=== PATIENT | female | born 1990 | race Caucasian/White ===

== ENCOUNTER 2017-01-08 07:47 | Emergency (ER) | payer OTHER ==
[~2017-01-08] VITALS: Ht 157.5 cm; Wt 97.5 kg
[~2017-01-08 07:47] MED LIST: PANT40TA5 PO
[2017-01-08 09:00] VITALS: BP 126/87
[2017-01-08] MEDS ORDERED: ONDA4TAB10 SL (09:21)
[2017-01-08] MEDS ORDERED: SULF1TAB24 PO (09:21)
--- NOTE | 2017-01-08 09:22 | PHYS DOC ---
Past Medical History Past Medical History: No Pertinent History Past Surgical History: Other Additional Past Surgical Histo: GASTRIC SURGERY AT BABY, WISDOM TEETH Alcohol Use: Occasionally Drug Use: None Adult General Chief Complaint Chief Complaint: WOUND CHECK [facility] HPI Patient is a 26 year old female presents the ED complaining of left arm drainage 1 day. Patient had her implanted control removed 4 days ago. Patient states she noticed some drainage from the wound where it was removed. Minimal erythema surrounding the wound. Describes the pain as sharp. Rates the pain as 4/10. Denies fever, nausea/vomiting, arm swelling, weakness, chest pain or shortness of breath. Review of Systems Review of Systems Constitutional: Denies fever or chills [] Eyes: Denies change in visual acuity, redness, or eye pain [] HENT: Denies nasal congestion or sore throat [] Respiratory: Denies cough or shortness of breath [] Cardiovascular: No additional information not addressed in HPI [] GI: Denies abdominal pain, nausea, vomiting, bloody stools or diarrhea [] : Denies dysuria or hematuria [] Musculoskeletal: Denies back pain or joint pain [] Integument: Denies rash or skin lesions [] Neurologic: Denies headache, focal weakness or sensory changes [] Endocrine: Denies polyuria or polydipsia [] All other systems were reviewed and found to be within normal limits, except as documented in this note. Allergies Allergies Allergies Coded Allergies Type Severity Reaction Last Updated Verified codeine Allergy Mild VOMITING 06/25/14 Yes Physical Exam Physical Exam Constitutional: Well developed, well nourished, no acute distress, non-toxic appearance. [] Skin: Warm, dry, no erythema, no rash. [] Back: No tenderness, no CVA tenderness. [] Extremities: MINIMAL ERYTHEMA TO LEFT UPPER INNER ARM AND MILD DRAINAGE FROM WOUND. NO ABSCESS OR FLUCTUANCE. STERI STRIPS IN PLACE. No tenderness, no cyanosis, no clubbing, ROM intact, no edema. [] Neurologic: Alert and oriented X 3, normal motor function, normal sensory function, no focal deficits noted. [] Psychologic: Affect normal, judgement normal, mood normal. [] Current Patient Data Vital Signs Vital Signs Date Time Temp Pulse Resp B/P (MAP) Pulse Ox O2 Delivery O2 Flow Rate FiO2 01/08/17 09:00 98.0 69 16 97 Room Air 98.0 EKG EKG [] Radiology/Procedures Radiology/Procedures [] Course & Med Decision Making Course & Med Decision Making Pertinent Labs and Imaging studies reviewed. (See chart for details) []UTD on immunizations. Will give patient a prescription for Bactrim twice daily. No abscess or fluctuance on exam. Discussed wound care. Discussed follow- up with Dr. Luo, DUTY MANAGER whom removed the implanted control. Discussed reasons to return to the ED. Patient understands and agrees with plan. Dragon Disclaimer Dragon Disclaimer This electronic medical record was generated, in whole or in part, using a voice recognition dictation system. Departure Departure Impression: Primary Impression: Visit for wound check Disposition: HOME, SELF-CARE Condition: IMPROVED Referrals: LAURA BAUM MD (PCP) Patient Instructions: Cellulitis, Wound Care, [id number] Scripts Ondansetron (ZOFRAN ODT) 4 Mg Tab.rapdis 1 TAB SL Q8HRS, #10 TAB Prov: HOLLI BRADLEY 01/08/17 Sulfamethoxazole/Trimethoprim (BACTRIM DS TABLET) 1 Each Tablet 1 TAB PO BID, #20 TAB Prov: HOLLI BRADLEY 01/08/17 HOLLI BRADLEY Jan 08, 2017 09:22
== END 2017-01-08 09:25 | disposition home or self-care (01) ==
LOC: ER 07:47
DX: Z48.00 Encounter for change or removal of nonsurgical wound dressing (principal); M79.602 Pain in left arm; Z88.5 Allergy status to narcotic agent
CPT/HCPCS: 99283

== ENCOUNTER → 2017-04-17 | Outpatient (CLI) | payer OTHER | END | disposition home or self-care (01) | LOC: KCIC 11:45 | DX: K59.00 Constipation, unspecified (principal); R10.10 Upper abdominal pain, unspecified; R11.0 Nausea | CPT/HCPCS: 74021 ==

== ENCOUNTER → 2017-05-02 | Outpatient (CLI) | payer OTHER | END | disposition home or self-care (01) | LOC: US 05:44 | DX: R10.84 Generalized abdominal pain (principal) | CPT/HCPCS: 76700 ==

== ENCOUNTER → 2017-06-06 | Day surgery (SDC) | payer OTHER ==
[~2017-06-06] MED LIST changes: +IV RINGERS,LACTATED 1000ML 1,000 ML IV; +LIDOCAINE 1% PF 2 ML VIAL. ID; +LIDOCAINE 2% PF Vial for OR 5 ML VIAL.; +MIDAZOLAM HCL/PF 2 MG/2 ML VIAL. IV; +ONDANSETRON PF 4 MG/2 ML VIAL. IV; -PANT40TA5 PO; +PROCHLORPERAZINE 10 MG/2 ML VIAL. IV; +PROPOFOL 40 ML IV; +fentaNYL PF VIAL 100 MCG/2 ML VIAL IV
[2017-06-06] MEDS: IV RINGERS,LACTATED 1000ML 1,000 ML IV (11:28)
[2017-06-06 11:47] LABS: NEG OBC UR NEG; POS OBC UR POS; U PREG PATIENT NEGATIVE (NEG)
== END | disposition home or self-care (01) ==
LOC: ENDOS 10:56
DX: K21.0 Gastro-esophageal reflux disease with esophagitis (principal); K31.89 Other diseases of stomach and duodenum; J45.909 Unspecified asthma, uncomplicated; F32.9 Major depressive disorder, single episode, unspecified; Z72.89 Other problems related to lifestyle; Z79.899 Other long term (current) drug therapy; Z88.5 Allergy status to narcotic agent; Z87.891 Personal history of nicotine dependence; Z83.71 Family history of colonic polyps; Z82.49 Family history of ischemic heart disease and other diseases of the circulatory system
CPT/HCPCS: 43239; 81025; 88305; J2704

== ENCOUNTER → 2017-06-15 | Outpatient (CLI) | payer OTHER | END | disposition home or self-care (01) | LOC: NM 08:22 | DX: K30 Functional dyspepsia (principal); K21.0 Gastro-esophageal reflux disease with esophagitis; Z79.899 Other long term (current) drug therapy | CPT/HCPCS: 78264; A9541 ==

== ENCOUNTER 2017-07-11 01:38 | Emergency (ER) | payer OTHER ==
[2017-07-11] MEDS: ONDANSETRON PF 4 MG/2 ML VIAL. IV (02:23)
[2017-07-11 02:30] LABS: URINE HCG POC HCG NEGATIVE (Negative)
[2017-07-11] MEDS: FAMOTIDINE 20 MG TABLET. PO (02:48)
[2017-07-11] MEDS ORDERED: PROMETHAZINE IM 25 MG/ML VIAL IM (03:37)
[2017-07-11] MEDS: PROMETHAZINE 12.5 MG TABLET. PO (03:42)
== END 2017-07-11 03:50 | disposition home or self-care (01) ==
LOC: ER 01:38
DX: K29.70 Gastritis, unspecified, without bleeding (principal); K21.9 Gastro-esophageal reflux disease without esophagitis; K58.9 Irritable bowel syndrome, unspecified; Z88.5 Allergy status to narcotic agent; Z98.890 Other specified postprocedural states
CPT/HCPCS: 81025; 96374; 99284-25; J2405; Q0169

== ENCOUNTER → 2018-04-06 | Outpatient (CLI) | payer OTHER ==
[2017-07-11 03:30] VITALS: BP 106/67
[~2018-04-06] VITALS: Ht 160 cm; Wt 90.7 kg
[~2018-04-06] MED LIST changes: +ALBU2.5V8 INH; -IV RINGERS,LACTATED 1000ML 1,000 ML IV; -LIDOCAINE 1% PF 2 ML VIAL. ID; -LIDOCAINE 2% PF Vial for OR 5 ML VIAL.; -MIDAZOLAM HCL/PF 2 MG/2 ML VIAL. IV; +ONDA4TAB10 SL; -ONDANSETRON PF 4 MG/2 ML VIAL. IV; +PANT40TA5 PO; -PROCHLORPERAZINE 10 MG/2 ML VIAL. IV; -PROPOFOL 40 ML IV; +SINCALIDE 1.8 MCG in IV NORMAL SALINE 50ML 30 ML IV ONE; +SULF1TAB24 PO; -fentaNYL PF VIAL 100 MCG/2 ML VIAL IV
--- NOTE | 2018-04-06 10:31 | RAD ---
Exam performed: Nuclear medicine hepatobiliary scan. History: Abdominal pain for one year Following intravenous administration of 5 mCi of Choletec tagged with Tc, sequential gamma camera images of the right upper quadrant of the abdomen were obtained. There is prompt accumulation of radionuclide in the liver which appears to be unremarkable Prompt accumulation in the central intrahepatic biliary radicals, gallbladder, common bile duct and small bowel is noted. Patient was also infused with 1.8mcg of CCK and gallbladder ejection fraction was calculated which measures 90%. Impression: Normal nuclear hepatobiliary scan with gallbladder ejection fraction measuring 90%. Electronically signed by: Sven Jesus MD (04/06/2018 10:28 AM) [id number]
== END | disposition home or self-care (01) ==
LOC: NM 07:30
PROVIDERS: ATTEND Internal Medicine Gastroenterology
DX: R10.84 Generalized abdominal pain (principal)
CPT/HCPCS: 78227; A9537; J2805

== ENCOUNTER → 2018-09-05 | Outpatient (CLI) | payer OTHER ==
[2017-07-11 03:30] VITALS: BP 106/67
[~2018-09-05] MED LIST changes: -PANT40TA5 PO; +PANT40TA77 PO; -SINCALIDE 1.8 MCG in IV NORMAL SALINE 50ML 30 ML IV ONE
== END | disposition home or self-care (01) ==
LOC: SPEC 12:37
PROVIDERS: ATTEND Nurse Practitioner
DX: Z12.4 Encounter for screening for malignant neoplasm of cervix (principal)
CPT/HCPCS: 88175

== ENCOUNTER → 2018-09-06 | Outpatient (CLI) | payer OTHER ==
[2017-07-11 03:30] VITALS: BP 106/67
[2018-09-06 04:07] LABS: BASO % 0 % (0-3); EOS # 0.1 x10^3/uL (0.0-0.7); EOS % 1 % (0-3); HEMOGLOBIN 13.6 g/dL (12.0-15.5); LYMPH # 3.7 x10^3/uL (1.0-4.8); LYMPH % 39 % (24-48); MEAN CORPUSCULAR HEMOGLOBIN 29 pg (25-35); MEAN CORPUSCULAR HGB CONC 33 g/dL (31-37); MEAN CORPUSCULAR VOLUME 87 fL (79-100); MONO # 0.6 x10^3/uL (0.0-1.1); MONO % 6 % (0-9); NEUT # 5.1 x10^3/uL (1.8-7.7); NEUT % 54 % (31-73); PLATELET COUNT 241 x10^3/uL (140-400); RED BLOOD COUNT 4.69 x10^6/uL (3.50-5.40); RED CELL DISTRIBUTION WIDTH 13.4 % (11.5-14.5); WHITE BLOOD COUNT 9.6 x10^3/uL (4.0-11.0)
[2018-09-06 04:26] LABS: ALBUMIN 3.7 g/dL (3.4-5.0); ALBUMIN/GLOBULIN RATIO 1.1 (1.0-1.7); ALK PHOS 53 U/L (46-116); ALT (SGPT) 17 U/L (14-59); ANION GAP 7 (6-14); AST (SGOT) 13 U/L (15-37); BLOOD UREA NITROGEN 14 mg/dL (7-20); BUN/CREATININE RATIO 18 (6-20); C-REACTIVE PROTEIN < 0.5 mg/L (0-3.3); CALCIUM 8.9 mg/dL (8.5-10.1); CARBON DIOXIDE 28 mmol/L (21-32); CHLORIDE 104 mmol/L (98-107); CHOLESTEROL 121 mg/dL (0-200); CHOLESTEROL/HDL RATIO 2.3; CREATININE 0.8 mg/dL (0.6-1.0); GFR 87.4; GLUCOSE 85 mg/dL (70-99); HDLC 52 mg/dL (40-60); LDLC 54 mg/dL (0-100); POTASSIUM 3.7 mmol/L (3.5-5.1); SODIUM 139 mmol/L (136-145); TOTAL BILIRUBIN 0.6 mg/dL (0.2-1.0); TOTAL PROTEIN 7.1 g/dL (6.4-8.2); TRIGLYCERIDES 77 mg/dL (0-150); VLDLC 15 mg/dL (0-40)
[2018-09-06 18:09] LABS: RHEUMATOID FACTOR <10.0 IU/mL (0.0-13.9)
[2018-09-07 00:07] LABS: HEMOGLOBIN A1C 5.4 % (4.8-5.6)
[2018-09-07 20:08] LABS: ANA INTERP Negative (.)
== END | disposition home or self-care (01) ==
LOC: SPEC 03:08
PROVIDERS: ATTEND Nurse Practitioner
DX: Z00.00 Encounter for general adult medical examination without abnormal findings (principal); M25.50 Pain in unspecified joint
CPT/HCPCS: 36415; 80053; 80061; 83036; 84443; 85025; 85651; 86038; 86140; 86431

== ENCOUNTER → 2019-03-08 | Outpatient (CLI) | payer OTHER ==
[2017-07-11 03:30] VITALS: BP 106/67
== END | disposition home or self-care (01) ==
LOC: LAB 09:34
PROVIDERS: ATTEND Internal Medicine
DX: N92.6 Irregular menstruation, unspecified (principal)
CPT/HCPCS: 36415; 84702

== ENCOUNTER → 2019-03-12 | Outpatient (CLI) | payer OTHER ==
[2017-07-11 03:30] VITALS: BP 106/67
[2019-03-12 10:06] LABS: BASO % 0 % (0-3); EOS # 0.1 x10^3/uL (0.0-0.7); EOS % 1 % (0-3); HEMATOCRIT 39.5 % (36.0-47.0); HEMOGLOBIN 13.1 g/dL (12.0-15.5); LYMPH # 3.7 x10^3/uL (1.0-4.8); LYMPH % 35 % (24-48); MEAN CORPUSCULAR HEMOGLOBIN 29 pg (25-35); MEAN CORPUSCULAR HGB CONC 33 g/dL (31-37); MEAN CORPUSCULAR VOLUME 87 fL (79-100); MONO # 0.7 x10^3/uL (0.0-1.1); MONO % 7 % (0-9); NEUT # 6.1 x10^3/uL (1.8-7.7); NEUT % 57 % (31-73); PLATELET COUNT 260 x10^3/uL (140-400); RED BLOOD COUNT 4.55 x10^6/uL (3.50-5.40); RED CELL DISTRIBUTION WIDTH 13.7 % (11.5-14.5); WHITE BLOOD COUNT 10.8 x10^3/uL (4.0-11.0)
== END | disposition home or self-care (01) ==
LOC: LAB 09:39
PROVIDERS: ATTEND Obstetrics & Gynecology
DX: Z32.01 Encounter for pregnancy test, result positive (principal)
CPT/HCPCS: 81220; 85025; 86592; 86703; 86762; 86850; 86900; 86901; 87340

== ENCOUNTER → 2019-07-02 | Outpatient (CLI) | payer OTHER ==
[2017-07-11 03:30] VITALS: BP 106/67
--- NOTE | 2019-07-02 10:14 | RAD ---
Examination: PREG MORE THAN OR EQ TO 14 WKS History: Uterine size and date discrepancy Comparison/Correlation: None Findings: OB ultrasound exam was performed. movement identified. cardiac activity is seen. heart rate is 137 bpm. Placenta is located anterior wall. 4 chamber heart is seen. breathing is not identified. Three-vessel cord and insertion noted. Fluid is seen in the urinary bladder. stomach, bilateral kidneys, spine, and brain seen. Cephalic lie noted. Amniotic fluid index is 10 cm and within normal range. Biparietal diameter is 4.96 cm corresponding to 21 weeks 0 day. Abdomen circumference is 18.36 mm corresponding to 20 weeks 5 days. Abdominal circumference is 16.7 cm corresponding to 21 weeks 5 days. Femur length is 3.6 cm corresponding 21 weeks 3 days. Estimated weight is 427 g. Gestational age is 21 weeks 2 days. Ultrasound EDC is 11/10/2019. Maternal cervical length is 5.6 cm. Impression: Single living intrauterine cephalic lie gestation with average ultrasound age of 21 weeks 2 days. EDC is 11/10/2019 and this is 1 day sooner as compared to EDC by last menstrual period. Electronically signed by: Jacob Lam MD (07/02/2019 10:10 AM) [id number]
== END | disposition home or self-care (01) ==
LOC: US 08:34
PROVIDERS: ATTEND Obstetrics & Gynecology
DX: O26.842 Uterine size-date discrepancy, second trimester (principal); Z3A.21 21 weeks gestation of pregnancy
CPT/HCPCS: 76805

== ENCOUNTER 2019-07-19 02:21 | Observation (INO) | payer OTHER ==
[2017-07-11 03:30] VITALS: BP 106/67
[2019-07-19] MEDS ORDERED: IV RINGERS,LACTATED 1000ML 1,000 ML IV SCH (02:24)
[2019-07-19 03:03] LABS: BILIRUBIN,URINE NEGATIVE (NEG); CLARITY,URINE CLEAR; COLOR,URINE YELLOW; NITRITE,URINE NEGATIVE (NEG); PH,URINE 6.5 (<5.0-8.0); PROTEIN,URINE NEGATIVE (NEG-TRACE); UROBILINOGEN,URINE 0.2 mg/dL (0.2 mg/dL)
[2019-07-19 03:09] LABS: AMNIO PT NEGATIVE
[2019-07-19 03:11] LABS: BACTERIA,URINE 0 /HPF (0-FEW); RBC,URINE 0 /HPF (0-2); SQUAMOUS EPITHELIAL CELL,UR FEW /LPF
[2019-07-19 03:12] LABS: BARBITURATES NEG (NEG); BENZODIAZEPINES NEG (NEG); CANNABINOIDS NEG (NEG); COCAINE NEG (NEG); METHADONE NEG (NEG); OPIATES NEG (NEG); PHENCYCLIDINE NEG (NEG)
[2019-07-19 03:14] LABS: AMPHETAMINE/METHAMPHETAMINE NEG (NEG)
== END 2019-07-19 03:41 | disposition home or self-care (01) ==
LOC: 3 SO LND 02:21
PROVIDERS: ADMIT Obstetrics & Gynecology; ATTEND Obstetrics & Gynecology
DX: O26.892 Other specified pregnancy related conditions, second trimester (principal); Z3A.21 21 weeks gestation of pregnancy
CPT/HCPCS: 36415; 80307; 81001; 84112; G0378; G0379

== ENCOUNTER → 2019-08-07 | Outpatient (CLI) | payer OTHER ==
[2017-07-11 03:30] VITALS: BP 106/67
[2019-08-07 11:22] LABS: BASO % 0 % (0-3); EOS # 0.2 x10^3/uL (0.0-0.7); EOS % 2 % (0-3); HEMATOCRIT 33.7 % (36.0-47.0); HEMOGLOBIN 11.8 g/dL (12.0-15.5); LYMPH # 2.7 x10^3/uL (1.0-4.8); LYMPH % 25 % (24-48); MEAN CORPUSCULAR HEMOGLOBIN 31 pg (25-35); MEAN CORPUSCULAR HGB CONC 35 g/dL (31-37); MEAN CORPUSCULAR VOLUME 88 fL (79-100); MONO # 0.6 x10^3/uL (0.0-1.1); MONO % 6 % (0-9); NEUT # 7.1 x10^3/uL (1.8-7.7); NEUT % 67 % (31-73); PLATELET COUNT 230 x10^3/uL (140-400); RED BLOOD COUNT 3.84 x10^6/uL (3.50-5.40); RED CELL DISTRIBUTION WIDTH 13.9 % (11.5-14.5); WHITE BLOOD COUNT 10.6 x10^3/uL (4.0-11.0)
== END | disposition home or self-care (01) ==
LOC: LAB 09:58
PROVIDERS: ATTEND Obstetrics & Gynecology
DX: O09.90 Supervision of high risk pregnancy, unspecified, unspecified trimester (principal); Z3A.26 26 weeks gestation of pregnancy
CPT/HCPCS: 36415; 82950; 85025

== ENCOUNTER 2019-09-23 06:15 | Observation (INO) | payer OTHER ==
[2017-07-11 03:30] VITALS: BP 106/67
[2019-09-23] MEDS ORDERED: IV RINGERS,LACTATED 1000ML 1,000 ML IV SCH (06:28)
== END 2019-09-23 07:55 | disposition home or self-care (01) ==
LOC: 3 SO LND 06:15
PROVIDERS: ADMIT Obstetrics & Gynecology; ATTEND Obstetrics & Gynecology
DX: O36.8130 Decreased fetal movements, third trimester, not applicable or unspecified (principal); Z3A.33 33 weeks gestation of pregnancy
CPT/HCPCS: G0378; G0379

== ENCOUNTER 2019-10-25 10:29 | Observation (INO) | payer OTHER ==
[2017-07-11 03:30] VITALS: BP 106/67
[2019-10-25 11:12] LABS: CREATININE,RANDOM URINE 191.7 mg/dL (Not Establ.)
[2019-10-25 11:26] LABS: ALBUMIN 2.3 g/dL (3.4-5.0); ALBUMIN/GLOBULIN RATIO 0.7 (1.0-1.7); CALCIUM 8.5 mg/dL (8.5-10.1); CREATININE 0.7 mg/dL (0.6-1.0); GFR 101.1; POTASSIUM 3.7 mmol/L (3.5-5.1); TOTAL BILIRUBIN 0.3 mg/dL (0.2-1.0); TOTAL PROTEIN 5.7 g/dL (6.4-8.2); URIC ACID 3.6 mg/dL (2.6-6.0)
[2019-10-25 11:32] LABS: BASO % 0 % (0-3); EOS # 0.1 x10^3/uL (0.0-0.7); EOS % 1 % (0-3); HEMATOCRIT 35.4 % (36.0-47.0); HEMOGLOBIN 12.2 g/dL (12.0-15.5); LYMPH # 1.6 x10^3/uL (1.0-4.8); LYMPH % 22 % (24-48); MEAN CORPUSCULAR HEMOGLOBIN 30 pg (25-35); MEAN CORPUSCULAR HGB CONC 35 g/dL (31-37); MEAN CORPUSCULAR VOLUME 88 fL (79-100); MONO # 0.4 x10^3/uL (0.0-1.1); MONO % 6 % (0-9); NEUT # 5.3 x10^3/uL (1.8-7.7); NEUT % 71 % (31-73); PLATELET COUNT 164 x10^3/uL (140-400); RED BLOOD COUNT 4.04 x10^6/uL (3.50-5.40); WHITE BLOOD COUNT 7.4 x10^3/uL (4.0-11.0)
== END 2019-10-25 12:53 | disposition home or self-care (01) ==
LOC: 3 SO LND 10:29
PROVIDERS: ADMIT Obstetrics & Gynecology; ATTEND Obstetrics & Gynecology
DX: O26.891 Other specified pregnancy related conditions, first trimester (principal); R51 Headache; R03.0 Elevated blood-pressure reading, without diagnosis of hypertension; Z3A.01 Less than 8 weeks gestation of pregnancy
CPT/HCPCS: 36415; 80053; 82570; 84156; 84550; 85025; G0378; G0379

== ENCOUNTER 2019-11-03 19:29 | Observation (INO) | payer OTHER ==
[2017-07-11 03:30] VITALS: BP 106/67
[2019-11-03] MEDS ORDERED: IV RINGERS,LACTATED 1000ML 1,000 ML IV PRN (19:45)
[2019-11-03 19:55] LABS: BILIRUBIN,URINE NEGATIVE (NEG); CLARITY,URINE CLEAR; COLOR,URINE YELLOW; NITRITE,URINE NEGATIVE (NEG); PROTEIN,URINE NEGATIVE (NEG-TRACE)
[2019-11-03 20:00] LABS: BACTERIA,URINE MANY /HPF (0-FEW); RBC,URINE OCC /HPF (0-2); SQUAMOUS EPITHELIAL CELL,UR MANY /LPF
== END 2019-11-03 21:12 | disposition home or self-care (01) ==
LOC: 3 SO LND 19:29
PROVIDERS: ADMIT Obstetrics & Gynecology; ATTEND Obstetrics & Gynecology
DX: O36.8130 Decreased fetal movements, third trimester, not applicable or unspecified (principal); Z3A.38 38 weeks gestation of pregnancy; Z79.82 Long term (current) use of aspirin
CPT/HCPCS: 81001; 87086; G0378; G0379

== ENCOUNTER → 2019-11-12 | Outpatient (CLI) | payer OTHER ==
[2017-07-11 03:30] VITALS: BP 106/67
== END ==
LOC: LAB 15:06
PROVIDERS: ATTEND Obstetrics & Gynecology
DX: Z01.812 Encounter for preprocedural laboratory examination (principal); Z20.828 Contact with and (suspected) exposure to other viral communicable diseases
CPT/HCPCS: U0003-CS

== ENCOUNTER 2019-11-14 18:39 | Inpatient (IN) | payer OTHER ==
[~2019-11-14] VITALS: Ht 160 cm; Wt 101.6 kg
[2019-11-14] MEDS ORDERED: LIDOCAINE 1% PF 30 ML VIAL. INJ PRN (19:00)
[2019-11-14] MEDS ORDERED: DINOPROSTONE 10 MG SUPP.VAG VG ONE (19:00)
[2019-11-14] MEDS ORDERED: fentaNYL PF VIAL 100 MCG/2 ML VIAL IVP PRN ×2 (19:00)
[2019-11-14] MEDS ORDERED: OXYTOCIN 30 UNIT/500 ML PREMIX 500 ML IV PRN ×2 (19:00)
[2019-11-14] MEDS ORDERED: ACETAMINOPHEN 325 MG TABLET. PO PRN (19:00)
[2019-11-14] MEDS ORDERED: 0.9 % SODIUM CHLORIDE 10 ML DISP.SYRIN. IV PRN (19:00)
[2019-11-14] MEDS ORDERED: TERBUTALINE 1 MG/ML VIAL. SQ PRN (19:00)
[2019-11-14] MEDS ORDERED: IBUPROFEN 400 MG TABLET. PO PRN (19:00)
[2019-11-14 19:15] LABS: BILIRUBIN,URINE NEGATIVE (NEG); CLARITY,URINE CLEAR; COLOR,URINE YELLOW; NITRITE,URINE NEGATIVE (NEG); PH,URINE 5.5 (<5.0-8.0); PROTEIN,URINE NEGATIVE (NEG-TRACE)
[2019-11-14 19:31] LABS: BACTERIA,URINE MODERATE /HPF (0-FEW)
[2019-11-14 19:52] LABS: BASO % 0 % (0-3); EOS % 0 % (0-3); HEMATOCRIT 36.9 % (36.0-47.0); HEMOGLOBIN 12.8 g/dL (12.0-15.5); LYMPH # 1.4 x10^3/uL (1.0-4.8); LYMPH % 17 % (24-48); MEAN CORPUSCULAR HEMOGLOBIN 30 pg (25-35); MEAN CORPUSCULAR HGB CONC 35 g/dL (31-37); MEAN CORPUSCULAR VOLUME 87 fL (79-100); MONO # 0.4 x10^3/uL (0.0-1.1); MONO % 5 % (0-9); NEUT # 6.1 x10^3/uL (1.8-7.7); NEUT % 77 % (31-73); PLATELET COUNT 183 x10^3/uL (140-400); RED BLOOD COUNT 4.23 x10^6/uL (3.50-5.40); RED CELL DISTRIBUTION WIDTH 13.4 % (11.5-14.5)
[2019-11-14] MEDS: IV RINGERS,LACTATED 1000ML 1,000 ML IV SCH (20:24)
[2019-11-14 20:44] VITALS: BP 119/71
[2019-11-15] MEDS: IV RINGERS,LACTATED 1000ML 1,000 ML IV SCH ×2 (02:37→11:38)
[2019-11-15] MEDS ORDERED: L&D EPIDURAL SYRINGE 50 ML ONE ×2 (13:02→17:05)
[2019-11-15] MEDS ORDERED: ROPIVacaine 0.2% PF 10 ML VIAL. ONE ×3 (13:03→14:00)
[2019-11-15] MEDS ORDERED: L&D EPIDURAL 50 ML SYRINGE. ONE (14:00)
[2019-11-15] MEDS ORDERED: ONDANSETRON PF 4 MG/2 ML VIAL. IVP PRN (14:15)
--- NOTE | 2019-11-15 16:14 | PDOC1 ---
OB - History Hx of Present Care: Good Care Ultrasounds: Normal mid trimester US Obstetrical Complications: None Medical Complications: None Past Family/Social History * Past Medical, Surgical, Family and Obstetric Histories reviewed from chart. Rubella: Immune RPR/VDRL: Negative GBS Status: Negative HBsAG: Negative OB - Chief Complaint & HPI Date of Admission: Date of Admission: Nov 14, 2019 at 18:39 Chief Complaint/History : 1 Para: 0 EGA: 40 Reason for admission: induction of labor Indication for induction: post dates, maternal discomfort Admission Nurse Assessment Rev: Yes OB - Admission Exam Physical Exam Vitals: VS - Last 72 Hours, by Label Date Time Temp Pulse Resp B/P (MAP) Pulse Ox O2 Delivery O2 Flow Rate FiO2 11/13/20 20:44 99.1 123 18 119/71 (87) Room Air 99.1 HEENT: Normal Heart: Regular Rate Lungs: Clear Abdomen: Gravid, Non tender, Soft Extremities: Edema Reflexes: Normal Cervical Dilatation: 2cm Effacement: 50% Station: -3 Membranes: Intact Heart Rate: Normal Accelerations: Accelerations Present Decelerations: No decelerations Contractions on Admission: None Text A: 40 wks IUP IOL secondary post term P: Admit cervidil, then pitocin in am. HUNG MORALES Jr, MD Nov 15, 2019 16:14
[2019-11-15] MEDS ORDERED: IV RINGERS,LACTATED 1000ML 1,000 ML IV SCH (17:06)
[2019-11-15] MEDS ORDERED: ROPIVacaine 0.2% PF 10 ML VIAL. EPID PRN (17:15)
[2019-11-15] MEDS ORDERED: BUPIVACAINE MPF 0.25% 30 ML VIAL. EPID PRN (17:15)
[2019-11-15] MEDS ORDERED: NALOXONE 0.4 MG/ML VIAL. IV PRN (17:15)
[2019-11-15] MEDS ORDERED: L&D EPIDURAL SYRINGE 50 ML EPID PRN (17:15)
[2019-11-15] MEDS ORDERED: PANTOPRAZOLE IV PUSH 40 MG VIAL. IVP SCH (18:00)
--- NOTE | 2019-11-15 22:03 | PDOC ---
VAGINAL DELIVERY DATE DATE: 11/15/19 TIME: 22:01 : 1 Para: 1 EGA: 40 VAGINAL DELIVERY: VTX VACCUM ASSISTED: No PLACENTA: Spontaneous 8/9 SEX: Female WEIGHT Weight [ 8 lbs. 9 oz.] Nuchal Cord: Yes, Times 2 Amniotic Fluid: Clear PAIN: Epidural EPISIOTOMY: No EXTENSION: Yes (Left vaginal sidewall laceration and 2nd degree midline laceration) Signs of Intrauterine Infectio: None Shoulder Dystocia: No HUNG MORALES Jr, MD Nov 15, 2019 22:02
[2019-11-15] MEDS ORDERED: TDaP (Adacel) per PROTOCOL. MC PRN (22:15)
[2019-11-15] MEDS ORDERED: MAG HYDROX/ALUMINUM HYD/SIMETH 30 ML ORAL.SUSP PO PRN (22:15)
[2019-11-15] MEDS ORDERED: 0.9 % SODIUM CHLORIDE 10 ML DISP.SYRIN. IV PRN (22:15)
[2019-11-15] MEDS ORDERED: HYDROCORTISONE 1% TOPICAL OINTMENT 30GM TUBE. TP PRN (22:15)
[2019-11-15] MEDS ORDERED: ZOLPIDEM 5 MG TABLET. PO PRN (22:15)
[2019-11-15] MEDS ORDERED: BENZOCAINE 20% TOPICAL AEROSOL SPRAY 57GM CAN. TP PRN (22:15)
[2019-11-15] MEDS ORDERED: SIMETHICONE 80 MG TAB.CHEW PO PRN (22:15)
[2019-11-15] MEDS ORDERED: OXYTOCIN 30 UNIT/500 ML PREMIX 500 ML IV PRN (22:15)
[2019-11-15] MEDS ORDERED: MAGNESIUM HYDROXIDE 2,400 MG/30 ML ORAL.SUSP. PO PRN (22:15)
[2019-11-15] MEDS ORDERED: diphenhydrAMINE HCL 25 MG CAPSULE PO PRN (22:15)
[2019-11-15] MEDS ORDERED: MMR per PROTOCOL. MC PRN (22:15)
[2019-11-15] MEDS ORDERED: PHENYLEPH/MINERAL OIL/PETROLAT RECTAL OINTMENT TUBE. RC PRN (22:15)
[2019-11-15] MEDS ORDERED: oxyCODONE/APAP 5/325 1 TAB TABLET PO PRN (22:15)
[2019-11-16 00:30] VITALS: BP 122/83
[2019-11-16] MEDS: IBUPROFEN 400 MG TABLET. PO PRN ×3 (01:46→20:28)
[2019-11-16 06:01] VITALS: BP 115/74
[2019-11-16] MEDS: FERROUS SULFATE 325 MG TABLET. PO SCH ×2 (08:00→16:46)
[2019-11-16 08:05] LABS: BASO % 0 % (0-3); EOS # 0.1 x10^3/uL (0.0-0.7); EOS % 1 % (0-3); HEMOGLOBIN 11.2 g/dL (12.0-15.5); LYMPH # 1.8 x10^3/uL (1.0-4.8); LYMPH % 13 % (24-48); MEAN CORPUSCULAR HEMOGLOBIN 30 pg (25-35); MEAN CORPUSCULAR HGB CONC 34 g/dL (31-37); MEAN CORPUSCULAR VOLUME 88 fL (79-100); MONO % 7 % (0-9); NEUT # 10.5 x10^3/uL (1.8-7.7); NEUT % 79 % (31-73); PLATELET COUNT 155 x10^3/uL (140-400); RED BLOOD COUNT 3.75 x10^6/uL (3.50-5.40); RED CELL DISTRIBUTION WIDTH 13.7 % (11.5-14.5); WHITE BLOOD COUNT 13.3 x10^3/uL (4.0-11.0)
[2019-11-16] MEDS: ACETAMINOPHEN 325 MG TABLET. PO PRN ×2 (08:11→23:43)
[2019-11-16] MEDS: DOCUSATE SODIUM 100 MG CAPSULE. PO PRN (08:11)
[2019-11-16] MEDS: MULTIVITAMIN with MINERAL TABLET. PO SCH (08:11)
[2019-11-16] MEDS: PANTOPRAZOLE 40 MG TABLET.DR. PO SCH (08:12)
--- NOTE | 2019-11-16 11:27 | PDOC ---
OB Progress Note Date of Service 11/16/19 Time of Evaluation 1125 Notes Pt. feeling well. No complaints. Lab Laboratory Tests Test 11/14/19 19:09 11/14/19 19:45 11/16/19 07:55 Urine Collection Type Unknown Urine Color Yellow Urine Clarity Clear Urine pH 5.5 (<5.0-8.0) Urine Specific [place] 1.015 (1.000-1.030) Urine Protein Negative mg/dL (NEG-TRACE) Urine Glucose (UA) Negative mg/dL (NEG) Urine Ketones (Stick) >=80 mg/dL (NEG) Urine Blood Negative (NEG) Urine Nitrite Negative (NEG) Urine Bilirubin Negative (NEG) Urine Urobilinogen Dipstick 1.0 mg/dL (0.2 mg/dL) Urine Leukocyte Esterase Trace (NEG) Urine RBC 1-2 /HPF (0-2) Urine WBC 1-4 /HPF (0-4) Urine Squamous Epithelial Cells Few /LPF Urine Bacteria Moderate /HPF (0-FEW) Urine Mucus Mod /LPF White Blood Count 8.0 x10^3/uL (4.0-11.0) 13.3 x10^3/uL (4.0-11.0) Red Blood Count 4.23 x10^6/uL (3.50-5.40) 3.75 x10^6/uL (3.50-5.40) Hemoglobin 12.8 g/dL (12.0-15.5) 11.2 g/dL (12.0-15.5) Hematocrit 36.9 % (36.0-47.0) 33.0 % (36.0-47.0) Mean Corpuscular Volume 87 fL (79-100) 88 fL (79-100) Mean Corpuscular Hemoglobin 30 pg (25-35) 30 pg (25-35) Mean Corpuscular Hemoglobin Concent 35 g/dL (31-37) 34 g/dL (31-37) Red Cell Distribution Width 13.4 % (11.5-14.5) 13.7 % (11.5-14.5) Platelet Count 183 x10^3/uL (140-400) 155 x10^3/uL (140-400) Neutrophils (%) (Auto) 77 % (31-73) 79 % (31-73) Lymphocytes (%) (Auto) 17 % (24-48) 13 % (24-48) Monocytes (%) (Auto) 5 % (0-9) 7 % (0-9) Eosinophils (%) (Auto) 0 % (0-3) 1 % (0-3) Basophils (%) (Auto) 0 % (0-3) 0 % (0-3) Neutrophils # (Auto) 6.1 x10^3/uL (1.8-7.7) 10.5 x10^3/uL (1.8-7.7) Lymphocytes # (Auto) 1.4 x10^3/uL (1.0-4.8) 1.8 x10^3/uL (1.0-4.8) Monocytes # (Auto) 0.4 x10^3/uL (0.0-1.1) 1.0 x10^3/uL (0.0-1.1) Eosinophils # (Auto) 0.0 x10^3/uL (0.0-0.7) 0.1 x10^3/uL (0.0-0.7) Basophils # (Auto) 0.0 x10^3/uL (0.0-0.2) 0.0 x10^3/uL (0.0-0.2) Laboratory Tests Test 11/16/19 07:55 White Blood Count 13.3 x10^3/uL (4.0-11.0) Red Blood Count 3.75 x10^6/uL (3.50-5.40) Hemoglobin 11.2 g/dL (12.0-15.5) Hematocrit 33.0 % (36.0-47.0) Mean Corpuscular Volume 88 fL (79-100) Mean Corpuscular Hemoglobin 30 pg (25-35) Mean Corpuscular Hemoglobin Concent 34 g/dL (31-37) Red Cell Distribution Width 13.7 % (11.5-14.5) Platelet Count 155 x10^3/uL (140-400) Neutrophils (%) (Auto) 79 % (31-73) Lymphocytes (%) (Auto) 13 % (24-48) Monocytes (%) (Auto) 7 % (0-9) Eosinophils (%) (Auto) 1 % (0-3) Basophils (%) (Auto) 0 % (0-3) Neutrophils # (Auto) 10.5 x10^3/uL (1.8-7.7) Lymphocytes # (Auto) 1.8 x10^3/uL (1.0-4.8) Monocytes # (Auto) 1.0 x10^3/uL (0.0-1.1) Eosinophils # (Auto) 0.1 x10^3/uL (0.0-0.7) Basophils # (Auto) 0.0 x10^3/uL (0.0-0.2) Medications Current Medications Sodium Chloride (Normal Saline Flush) 3 ml QSHIFT PRN IV AFTER MEDS AND BLOOD DRAWS Last administered on 11/15/19at 06:05; Start 11/14/19 at 19:00 Ringer's Solution 1,000 ml @ 125 mls/hr Q8H IV Last administered on 11/15/19at 11:38; Start 11/14/19 at 18:53 Fentanyl Citrate (Fentanyl 2ml Vial) 50 mcg PRN Q30MIN PRN IVP Mild to moderate pain; Start 11/14/19 at 19:00 Fentanyl Citrate (Fentanyl 2ml Vial) 100 mcg PRN Q30MIN PRN IVP Severe pain; Start 11/14/19 at 19:00 Acetaminophen (Tylenol) 650 mg PRN Q6HRS PRN PO MILD PAIN / TEMP > 100.3'F; Start 11/14/19 at 19:00; Stop 11/15/19 at 22:09; Status DC Terbutaline Sulfate (Brethine) 0.25 mg 1X PRN PRN SQ SEE COMMENTS; Start 11/14/19 at 19:00; Stop 11/15/19 at 18:59; Status DC Lidocaine HCl (Xylocaine 1% Pf 30ml Vial) 30 ml 1X PRN PRN INJ SEE COMMENTS Last administered on 11/15/19at 23:21; Start 11/14/19 at 19:00; Stop 11/16/19 at 18:59 Oxytocin/Sodium Chloride 500 ml @ 0 mls/hr CONT PRN IV SEE I/O RECORD Last administered on 11/15/19at 06:02; Start 11/14/19 at 19:00 Oxytocin/Sodium Chloride 500 ml @ 0 mls/hr CONT PRN PRN IV Post delivery bleeding; Start 11/14/19 at 19:00 Ibuprofen (Motrin) 800 mg PRN Q6HRS PRN PO INFLAMMATION; Start 11/14/19 at 19:00; Stop 11/15/19 at 22:09; Status DC Dinoprostone (Cervidil) 10 mg 1X ONCE VG Last administered on 11/14/19at 20:24; Start 11/14/19 at 19:00; Stop 11/14/19 at 19:04; Status DC Fentanyl Citrate 50 ml @ As Directed STK-MED ONCE .ROUTE ; Start 11/15/19 at 13:02; Stop 11/15/19 at 13:02; Status DC Ropivacaine (Naropin 0.2%) 10 ml STK-MED ONCE .ROUTE ; Start 11/15/19 at 13:03; Stop 11/15/19 at 13:04; Status DC Ropivacaine (Naropin 0.2%) 10 ml STK-MED ONCE .ROUTE ; Start 11/15/19 at 13:29; Stop 11/15/19 at 13:30; Status DC Ondansetron HCl (Zofran) 4 mg PRN Q6HRS PRN IVP NAUSEA/VOMITING Last administered on 11/15/19at 14:12; Start 11/15/19 at 14:15 Fentanyl Citrate 50 ml @ As Directed STK-MED ONCE .ROUTE ; Start 11/15/19 at 17:05; Stop 11/15/19 at 17:05; Status DC Ringer's Solution 1,000 ml @ 1,000 mls/hr Q1H IV Last administered on 11/15/19at 17:57; Start 11/15/19 at 17:06; Stop 11/15/19 at 18:05; Status DC Naloxone HCl (Narcan) 0.04 mg PRN Q1MIN PRN IV SEE COMMENTS; Start 11/15/19 at 17:15 Bupivacaine HCl (Sensorcaine Mpf 0.25%) 10 ml PRN 1X PRN EPID FOR ANESTHESIA; Start 11/15/19 at 17:15; Stop 11/16/19 at 17:14 Fentanyl Citrate 50 ml @ 14 mls/hr CONT PRN EPID PAIN Last administered on 11/15/19at 17:15; Start 11/15/19 at 17:15 Ropivacaine (Naropin 0.2%) 20 ml 1X PRN PRN EPID PER ANESTHESIA; Start 11/15/19 at 17:15; Stop 11/16/19 at 17:14 Pantoprazole Sodium (PROTONIX VIAL for IV PUSH) 40 mg DAILYAC IVP Last administered on 11/15/19at 17:57; Start 11/15/19 at 18:00; Stop 11/16/19 at 07:48; Status DC Sodium Chloride (Normal Saline Flush) 10 ml QSHIFT PRN IV AFTER MEDS AND BLOOD DRAWS; Start 11/15/19 at 22:15 Oxytocin/Sodium Chloride 500 ml @ 62.5 mls/hr CONT PRN IV SEE I/O RECORD; Start 11/15/19 at 22:15; Stop 11/16/19 at 06:14; Status DC Acetaminophen (Tylenol) 650 mg PRN Q6HRS PRN PO MILD PAIN / TEMP > 100.3'F Last administered on 11/16/19at 08:11; Start 11/15/19 at 22:15 Ibuprofen (Motrin) 800 mg PRN Q8HRS PRN PO INFLAMMATION/PAIN PREVENTION Last administered on 11/16/19at 01:46; Start 11/15/19 at 22:15 Docusate Sodium (Colace) 100 mg PRN BID PRN PO HARD STOOL Last administered on 11/16/19at 08:11; Start 11/15/19 at 22:15 Magnesium Hydroxide (Milk Of Magnesia) 2,400 mg PRN DAILY PRN PO CONSTIPATION 2ND CHOICE; Start 11/15/19 at 22:15 Al Hydroxide/Mg Hydroxide (Mylanta Plus Xs) 30 ml PRN Q4HRS PRN PO HEARTBURN / GAS; Start 11/15/19 at 22:15 Simethicone (Gas-X) 80 mg PRN AFTMEALHC PRN PO GAS / BLOATING; Start 11/15/19 at 22:15 Diphenhydramine HCl (Benadryl) 25 mg PRN Q6HRS PRN PO ITCHING; Start 11/15/19 at 22:15 Benzocaine (Americaine) 1 spray PRN QID PRN TP TOPICAL PAIN Last administered on 11/15/19at 23:20; Start 11/15/19 at 22:15 Phenyleph/Shark Oil/Min Oil/Petrol (Preparation H) 1 kendra PRN QID PRN RC RECTAL PAIN; Start 11/15/19 at 22:15 Hydrocortisone (Cortaid) 1 kendra PRN QID PRN TP PERINEAL PAIN; Start 11/15/19 at 22:15 Ferrous Sulfate (Feosol) 325 mg BIDWMEALS PO ; Start 11/16/19 at 08:00 Zolpidem Tartrate (Ambien) 5 mg PRN QHS PRN PO INSOMNIA, MAY REPEAT X1; Start 11/15/19 at 22:15 Info (Do NOT chart on this placeholder) 1 ea 1X PRN PRN MC SEE COMMENTS; Start 11/15/19 at 22:15 Info (Do NOT chart on this placeholder) 1 ea 1X PRN PRN MC SEE COMMENTS; Start 11/15/19 at 22:15 Oxycodone/ Acetaminophen (Percocet 5/325) 2 tab PRN Q4HRS PRN PO MODERATE PAIN, SEVERE PAIN; Start 11/15/19 at 22:15 Multivitamins (Thera M Plus) 1 tab DAILY PO Last administered on 11/16/19at 08:11; Start 11/16/19 at 09:00 Pantoprazole Sodium (Protonix) 40 mg DAILYAC PO Last administered on 11/16/19at 08:12; Start 11/16/19 at 08:00 Active Scripts Active Reported Proair Hfa Inhaler (Albuterol Sulfate) 8.5 Gm Hfa.aer.ad 1 Puff INH PRN Q6HRS PRN Exam Abd: soft, non tender, fundus firm Assessment PPD#1 s/p Plan of Care: Continue current Tx, Mgmt HUNG MORALES Jr, MD Nov 16, 2019 11:27
[2019-11-16 12:17] VITALS: BP 110/74
[2019-11-16 15:00] VITALS: BP 126/66
[2019-11-16 21:39] VITALS: BP 125/65
[2019-11-17] MEDS ORDERED: ONDANSETRON ODT 4 MG TAB.RAPDIS. PO PRN (06:00)
[2019-11-17] MEDS: IBUPROFEN 400 MG TABLET. PO PRN ×2 (06:08→14:53)
[2019-11-17 06:48] VITALS: BP 137/80
[2019-11-17] MEDS: FERROUS SULFATE 325 MG TABLET. PO SCH ×2 (08:00→17:00)
[2019-11-17] MEDS: DOCUSATE SODIUM 100 MG CAPSULE. PO PRN (08:11)
[2019-11-17] MEDS: PANTOPRAZOLE 40 MG TABLET.DR. PO SCH (08:11)
[2019-11-17] MEDS: MULTIVITAMIN with MINERAL TABLET. PO SCH (08:11)
--- NOTE | 2019-11-17 10:08 | PDOC3 ---
OB DISCHARGE SUMMARY DATE OF ADMISSION: 11/14/19 DATE OF DISCHARGE: 11/17/19 REASON FOR ADMISSION: Induction of labor INTRAPARTUM PROCEDURES: Spontanous Vag Deliv DISCHARGE DIAGNOSIS: Term Delivered DISCHARGE INFORMATION: Activity (ad yuriy), Diet (regular), Instructions (pelvic rest x 6 wks) HOSPITAL COURSE Term gestation delivered vaginally without complications. HUNG MORALES Jr, MD Nov 17, 2019 10:08
[2019-11-17] MEDS ORDERED: IBUP-1027 PO (10:10)
--- NOTE | 2019-11-17 10:10 | DISCH ---
DISCHARGE INSTRUCTIONS Condition on Discharge Condition on Discharge: Stable Activity After Discharge Activity Instructions for Disc: Activity as tolerated Lifting Instructions after Dis: No heavy lifting Driving Instructions after Dis: Do not drive today Diet after Discharge Diet after Discharge: Regular Contacting the DRL[facility]aro after DC Call your doctor for: Concerns you may have Follow-Up Follow up with: Dr. Bond in 6 wks HUNG BOND Jr, MD Nov 17, 2019 10:10
[2019-11-17 17:14] VITALS: BP 120/85
--- NOTE | 2019-11-17 17:35 | NUR ---
Discharge and follow up instructions reviewed and given to patient along with 1 Rx for ibuprofen. Pt verbalized understanding and denied any questions or complaints at this time. Pt ambulated out of the hospital with her and staff by her side.
== END 2019-11-17 17:35 | disposition home or self-care (01) | DRG 807 ==
LOC: 3 SO LND 18:39
PROVIDERS: ADMIT Obstetrics & Gynecology; ATTEND Obstetrics & Gynecology
PROC: 10E0XZZ Delivery of Products of Conception, External Approach (ICD-10-PCS; principal; 2019-11-14)
PROC: 3E0R3BZ Introduction of Anesthetic Agent into Spinal Canal, Percutaneous Approach (ICD-10-PCS; 2019-11-14)
PROC: 00HU33Z Insertion of Infusion Device into Spinal Canal, Percutaneous Approach (ICD-10-PCS; 2019-11-14)
DX: O48.0 Post-term pregnancy (principal); Z37.0 Single live birth; O69.81X0 Labor and delivery complicated by cord around neck, without compression, not applicable or unspecified; O70.1 Second degree perineal laceration during delivery; Z3A.40 40 weeks gestation of pregnancy
CPT/HCPCS: 36415; 81001; 85025; 86850; 86900; 86901; 87086; C9113; J2405; J2590; J2795; J3010; J3490; J7120; G0378

== ENCOUNTER → 2020-07-30 | Outpatient (CLI) | payer OTHER ==
[~2020-07-30] MED LIST changes: +IBUP-1027 PO
[2020-07-30 08:28] LABS: BASO % 0 % (0-3); EOS # 0.1 x10^3/uL (0.0-0.7); EOS % 2 % (0-3); HEMATOCRIT 38.6 % (36.0-47.0); HEMOGLOBIN 12.8 g/dL (12.0-15.5); LYMPH # 2.6 x10^3/uL (1.0-4.8); LYMPH % 44 % (24-48); MEAN CORPUSCULAR HEMOGLOBIN 29 pg (25-35); MEAN CORPUSCULAR HGB CONC 33 g/dL (31-37); MEAN CORPUSCULAR VOLUME 89 fL (79-100); MONO # 0.5 x10^3/uL (0.0-1.1); MONO % 8 % (0-9); NEUT # 2.7 x10^3/uL (1.8-7.7); NEUT % 46 % (31-73); PLATELET COUNT 207 x10^3/uL (140-400); RED BLOOD COUNT 4.35 x10^6/uL (3.50-5.40); RED CELL DISTRIBUTION WIDTH 13.4 % (11.5-14.5)
[2020-07-30 08:57] LABS: FREE T4 0.88 ng/dL (0.76-1.46); THYROID STIM HORMONE (TSH) 2.995 uIU/mL (0.358-3.74)
== END ==
LOC: LAB 07:58
PROVIDERS: ATTEND Obstetrics & Gynecology
DX: D64.9 Anemia, unspecified (principal); R53.83 Other fatigue; N81.11 Cystocele, midline; R68.89 Other general symptoms and signs; N81.6 Rectocele; R58 Hemorrhage, not elsewhere classified
CPT/HCPCS: 36415; 82728; 83540; 83550; 84439; 84443; 85025

== ENCOUNTER → 2020-10-26 | Outpatient (CLI) | payer OTHER ==
[2020-08-07 12:45] VITALS: BP 120/85
[2020-10-26 08:13] LABS: BASO % 1 % (0-3); EOS # 0.1 x10^3/uL (0.0-0.7); EOS % 2 % (0-3); HEMOGLOBIN 13.5 g/dL (12.0-15.5); LYMPH # 2.5 x10^3/uL (1.0-4.8); LYMPH % 40 % (24-48); MEAN CORPUSCULAR HEMOGLOBIN 31 pg (25-35); MEAN CORPUSCULAR HGB CONC 34 g/dL (31-37); MEAN CORPUSCULAR VOLUME 90 fL (79-100); MONO # 0.4 x10^3/uL (0.0-1.1); MONO % 7 % (0-9); NEUT # 3.1 x10^3/uL (1.8-7.7); NEUT % 51 % (31-73); PLATELET COUNT 192 x10^3/uL (140-400); RED BLOOD COUNT 4.43 x10^6/uL (3.50-5.40); RED CELL DISTRIBUTION WIDTH 13.9 % (11.5-14.5); WHITE BLOOD COUNT 6.1 x10^3/uL (4.0-11.0)
== END ==
LOC: LAB 07:50
PROVIDERS: ATTEND Obstetrics & Gynecology
DX: N81.11 Cystocele, midline (principal); N81.6 Rectocele; D64.9 Anemia, unspecified; E61.1 Iron deficiency
CPT/HCPCS: 36415; 82728; 83540; 83550; 85025

== ENCOUNTER → 2021-02-09 | Outpatient (CLI) | payer OTHER ==
[2020-08-07 12:45] VITALS: BP 120/85
== END ==
LOC: LAB 08:37
PROVIDERS: ATTEND Internal Medicine Pulmonary Disease
DX: R53.81 Other malaise (principal); R09.81 Nasal congestion; Z20.822 Contact with and (suspected) exposure to COVID-19
CPT/HCPCS: U0003; U0005

== ENCOUNTER → 2021-02-15 | Outpatient (CLI) | payer OTHER ==
[2020-08-07 12:45] VITALS: BP 120/85
== END ==
LOC: LAB 10:00
PROVIDERS: ATTEND Internal Medicine Pulmonary Disease
DX: R09.81 Nasal congestion (principal); R53.81 Other malaise; Z20.822 Contact with and (suspected) exposure to COVID-19
CPT/HCPCS: U0003; U0005

== ENCOUNTER → 2021-03-25 | Outpatient (CLI) | payer OTHER ==
[2020-08-07 12:45] VITALS: BP 120/85
[2021-03-25 05:17] LABS: CHOLESTEROL/HDL RATIO 2.2
== END ==
LOC: SPEC 04:16
PROVIDERS: ATTEND Internal Medicine
DX: Z13.220 Encounter for screening for lipoid disorders (principal)
CPT/HCPCS: 36415; 80061